=== PATIENT | male | born 1990 | race Two or more races ===

== ENCOUNTER 2019-12-31 17:59 | Emergency (ER) | payer SELFPAY ==
[~2019-12-31] VITALS: Ht 190.5 cm; Wt 77.0 kg
[2019-12-31] MEDS ORDERED: HYDROCODONE/ACETAMINOPHEN 5/325MG TABLET PO ONE (18:30)
[2019-12-31 18:35] VITALS: BP 127/90
[2019-12-31] MEDS ORDERED: IBUPROFEN 600MG TABLET PO ONE (19:30)
== END 2019-12-31 19:50 | disposition home or self-care (01) ==
LOC: ER 17:59
DX: S62.125A Nondisplaced fracture of lunate [semilunar], left wrist, initial encounter for closed fracture (principal); J45.909 Unspecified asthma, uncomplicated; Z88.0 Allergy status to penicillin; Y04.0XXA Assault by unarmed brawl or fight, initial encounter; Y93.89 Activity, other specified; Y92.89 Other specified places as the place of occurrence of the external cause; Y99.8 Other external cause status
CPT/HCPCS: 29125; 73090; 73110; 73130; 99284

== ENCOUNTER 2021-11-13 12:34 | Emergency (ER) | payer OTHER ==
[~2021-11-13] VITALS: Ht 190.5 cm; Wt 81.0 kg
[2021-11-13] MEDS ORDERED: IBUPROFEN 800MG TABLET PO ONE (13:00)
[2021-11-13] MEDS ORDERED: ACETAMINOPHEN WITH CODEINE 300/30MG TABLET PO ONE (13:15)
[2021-11-13] MEDS ORDERED: ONDANSETRON 4MG ODT PO ONE (15:15)
[2021-11-13] MEDS ORDERED: MORPHINE SULFATE 10 MG/ML CPJ IM ONE (15:15)
[2021-11-13] MEDS ORDERED: IBUP-2030 MT (15:27)
[2021-11-13] MEDS ORDERED: HYDR-4001 MT (15:27)
[2021-11-13 15:40] VITALS: BP 120/73
== END 2021-11-13 15:43 | disposition home or self-care (01) ==
LOC: ER 12:34
DX: S82.141A Displaced bicondylar fracture of right tibia, initial encounter for closed fracture (principal); W01.0XXA Fall on same level from slipping, tripping and stumbling without subsequent striking against object, initial encounter; J45.909 Unspecified asthma, uncomplicated; Y04.0XXA Assault by unarmed brawl or fight, initial encounter; Y93.89 Activity, other specified; Y92.9 Unspecified place or not applicable; Z88.0 Allergy status to penicillin
CPT/HCPCS: 73562; 73590; 73700; 96372; 99284; J2270; L1830; Q0162; Z7610